=== PATIENT | female | born 2000 | race African-American/Black ===

== ENCOUNTER 2018-06-18 12:55 | Observation (INO) | payer OTHER ==
[~2018-06-18] VITALS: Ht 170.2 cm; Wt 106.2 kg
[2018-06-18 13:30] VITALS: BP 156/69; TEMP 98.9
[2018-06-18 15:13] LABS: POTASSIUM 3.7 mmol/L (3.6-5.2)
[2018-06-18 15:16] LABS: PLATELET COUNT 415 K/uL (152-353)
[2018-06-18 16:50] VITALS: BP 153/68; TEMP 98.8; Ht 170.2 cm; Wt 106.2 kg
[2018-06-18 20:00] VITALS: BP 130/69; TEMP 98.7
[2018-06-19] VITALS: BP 162/77; TEMP 98.4
[2018-06-19 04:00] VITALS: BP 115/55; TEMP 97.9
[2018-06-19 08:00] VITALS: BP 143/80; TEMP 97.8
[2018-06-19 09:02] LABS: POTASSIUM 4.1 mmol/L (3.6-5.2)
[2018-06-19] MEDS ORDERED: CIPR500T PO (11:52)
[2018-06-19] MEDS ORDERED: DOCU100C10 PO (11:52)
[2018-06-19 12:00] VITALS: BP 150/90; TEMP 98.1
[2018-06-19] MEDS ORDERED: FOLI1TAB26 PO (12:08)
[2018-06-19] MEDS ORDERED: FERROUS SULF325 MG PO (12:15)
[2018-06-19] MEDS ORDERED: JOLIVETTE0.35 MG PO (12:27)
== END 2018-06-19 13:40 | disposition home or self-care (01) ==
LOC: ED 12:55 → MED/SURG 15:30
PROVIDERS: Family Medicine; ADMIT Emergency Medicine
PROC: 30233N1 Transfusion of Nonautologous Red Blood Cells into Peripheral Vein, Percutaneous Approach (ICD-10-PCS; principal; 2018-06-18)
PROC: 30233N1 Transfusion of Nonautologous Red Blood Cells into Peripheral Vein, Percutaneous Approach (ICD-10-PCS; 2018-06-19)
DX: D50.8 Other iron deficiency anemias (principal); R53.1 Weakness; N93.8 Other specified abnormal uterine and vaginal bleeding; N39.0 Urinary tract infection, site not specified; N92.0 Excessive and frequent menstruation with regular cycle; N17.8 Other acute kidney failure; E86.0 Dehydration
CPT/HCPCS: 36415; 36430; 80048; 80053; 81000; 81025; 82607; 82728; 82746; 83540; 83550; 85014; 85018; 85027; 86850; 86900; 86901; 86922; 87086; 87088; 99220; 99283; G0378; P9016